=== PATIENT | female | born 1945 | race Caucasian/White ===

== ENCOUNTER → 2016-03-21 | Outpatient (CLI) | payer OTHER, MEDICARE ==
[~2016-03-21] MED LIST: ASPI325T45 PO; ATOR-24 PO; CALC-393 PO; CARV12.52 PO; CHOL1CAP57 PO; FAMO1TAB47 PO; FOLI800T PO; HYDR200T5 PO; IMDSR60 PO; LISI5TAB PO; MAGN1CAP2 PO; METH2.5T PO; NITR0.2D TD; NITR0.4S UT; NRV5 PO; RTXI100 IV
[2016-03-21 12:42] LABS: HEMATOCRIT 34.7 % (37-47); MEAN CELL VOLUME 94.8 fL (80-100); MEAN CORPUSCULAR HEMOGLOBIN 31.4 pg (25-34); MEAN CORPUSCULAR HGB CONC 33.1 g/dl (32-36); MEAN PLATELET VOLUME 11.2 fL (7.4-10.4); PLATELET COUNT 176 K/uL (130-400); RED BLOOD COUNT 3.66 M/uL (4.2-5.4); WHITE BLOOD COUNT 3.77 K/uL (4.8-10.8)
[2016-03-21 13:12] LABS: ALT/SGPT 42 U/L (12-78); BLOOD UREA NITROGEN 25 mg/dl (7-18); BUN/CREATININE RATIO 30.6 (10-20); CALCIUM 9.3 mg/dl (8.5-10.1); CARBON DIOXIDE 27 mmol/L (21-32); CHLORIDE 110 mmol/L (98-107); CHOLESTEROL 137 mg/dl (0-200); GLUCOSE 77 mg/dl (70-99); POTASSIUM 4.1 mmol/L (3.5-5.1); SODIUM 147 mmol/L (136-145); TRIGLYCERIDES 49 mg/dl (0-150); VERY LOW DENSITY LIPOPROT CALC 10 mg/dl
[2016-03-21 13:15] LABS: ALB/GLOB RATIO 1.2 (0.9-2); ALKALINE PHOSPHATASE 105 U/L (45-117); AST/SGOT 44 U/L (15-37); CHOLESTEROL/HDL RATIO 2.4; HDL CHOLESTEROL 56 mg/dl; LDL CHOLESTEROL CALCULATED 71 mg/dl
== END | disposition home or self-care (01) ==
LOC: C.LABPVFM 09:05
PROVIDERS: ATTEND Internal Medicine Cardiovascular Disease
DX: I25.5 Ischemic cardiomyopathy (principal); E78.5 Hyperlipidemia, unspecified; I10 Essential (primary) hypertension; I25.118 Atherosclerotic heart disease of native coronary artery with other forms of angina pectoris

== ENCOUNTER → 2016-04-05 | Outpatient (CLI) | payer OTHER, MEDICARE ==
[2016-04-05 17:29] LABS: BLOOD UREA NITROGEN 19 mg/dl (7-18); BUN/CREATININE RATIO 20.1 (10-20); CARBON DIOXIDE 29 mmol/L (21-32); CHLORIDE 110 mmol/L (98-107); CREATININE 0.92 mg/dl (0.60-1.20); GLUCOSE 62 mg/dl (70-99); POTASSIUM 4.1 mmol/L (3.5-5.1); SODIUM 145 mmol/L (136-145)
== END | disposition home or self-care (01) ==
LOC: C.LABPVFM 10:46
PROVIDERS: ATTEND Internal Medicine Cardiovascular Disease
DX: I25.5 Ischemic cardiomyopathy (principal); E78.5 Hyperlipidemia, unspecified; I10 Essential (primary) hypertension; I25.118 Atherosclerotic heart disease of native coronary artery with other forms of angina pectoris

== ENCOUNTER → 2016-07-19 | Outpatient (CLI) | payer OTHER, MEDICARE ==
--- NOTE | 2016-07-26 16:38 | MAMMOGRAPHY REPORT ---
BILATERAL DIGITAL SCREENING MAMMOGRAM WITH CAD: 07/19/2016 CLINICAL HISTORY: Routine screening. Patient has no complaints. TECHNIQUE: Bilateral CC and MLO views were obtained. Current study was also evaluated with a Comput er Aided Detection (CAD) system. COMPARISON: Comparison is made to exams dated: 10/13/2009 mammogram, 11/02/2010 mammogram, and 08/24/19 14 mammogram - [facility]. BREAST COMPOSITION: The tissue of both breasts is heterogeneously dense, which may obscure small ma sses. FINDINGS: There has been no significant interval change compared to the prior outside mammograms. No new suspicious mass, architectural distortion or cluster of microcalcifications is seen. IMPRESSION: ACR BI-RADS CATEGORY 1: NEGATIVE There is no mammographic evidence of malignancy. A 1 year screening mammogram is recommended. The p atient will receive written notification of the results. Approximately 10% of breast cancers are not detected with mammography. A negative mammographic repor t should not delay biopsy if a clinically suggestive mass is present. Megha Kasper M.D. ay/:07/26/2016 15:46:40 [employer] Operator: Heavenly CHAMPAGNE(R)(M), [facility] letter sent: Normal 1/2 BI-RADS Code: ACR BI-RADS Category 1: Negative
== END | disposition home or self-care (01) ==
LOC: C.MAMM 12:44
PROVIDERS: ATTEND Family Medicine
DX: Z12.31 Encounter for screening mammogram for malignant neoplasm of breast (principal)

== ENCOUNTER → 2016-08-10 | Outpatient (CLI) | payer OTHER, MEDICARE ==
[2016-08-10 17:39] LABS: HEMATOCRIT 35.5 % (37-47); MEAN CELL VOLUME 95.7 fL (80-100); MEAN CORPUSCULAR HEMOGLOBIN 31.3 pg (25-34); MEAN CORPUSCULAR HGB CONC 32.7 g/dl (32-36); MEAN PLATELET VOLUME 10.4 fL (7.4-10.4); PLATELET COUNT 138 K/uL (130-400); RED BLOOD COUNT 3.71 M/uL (4.2-5.4); WHITE BLOOD COUNT 3.99 K/uL (4.8-10.8)
[2016-08-10 19:01] LABS: ALT/SGPT 48 U/L (12-78); AST/SGOT 42 U/L (15-37); BLOOD UREA NITROGEN 18 mg/dl (7-18); BUN/CREATININE RATIO 21.3 (10-20); CALCIUM 9.1 mg/dl (8.5-10.1); CARBON DIOXIDE 25 mmol/L (21-32); CHLORIDE 110 mmol/L (98-107); CREATININE 0.86 mg/dl (0.60-1.20); GLUCOSE 81 mg/dl (70-99); SODIUM 145 mmol/L (136-145)
== END | disposition home or self-care (01) ==
LOC: C.LABPVFM 11:54
PROVIDERS: ATTEND Internal Medicine Cardiovascular Disease
DX: I25.10 Atherosclerotic heart disease of native coronary artery without angina pectoris (principal); E78.5 Hyperlipidemia, unspecified; I10 Essential (primary) hypertension; I25.5 Ischemic cardiomyopathy

== ENCOUNTER → 2016-11-02 | Outpatient (CLI) | payer OTHER, MEDICARE ==
[2016-11-02 18:04] LABS: ALT/SGPT 83 U/L (12-78); AST/SGOT 65 U/L (15-37); BLOOD UREA NITROGEN 18 mg/dl (7-18); BUN/CREATININE RATIO 21.5 (10-20); CALCIUM 9.1 mg/dl (8.5-10.1); CARBON DIOXIDE 30 mmol/L (21-32); CHLORIDE 108 mmol/L (98-107); CREATININE 0.84 mg/dl (0.60-1.20); GLUCOSE 98 mg/dl (70-99); POTASSIUM 3.8 mmol/L (3.5-5.1); SODIUM 141 mmol/L (136-145)
[2016-11-02 18:06] LABS: ALB/GLOB RATIO 0.9 (0.9-2); ALKALINE PHOSPHATASE 120 U/L (45-117)
[2016-11-02 18:12] LABS: BASO % 0.2 %; BASO ABS # 0.01 K/uL (0-0.2); COMPLETE YES; EOS % 8.6 %; HEMATOCRIT 33.2 % (37-47); IG% 0.2 %; LYMPH % 9.2 %; LYMPH ABS # 0.42 K/uL (1.2-3.4); MEAN CELL VOLUME 96.5 fL (80-100); MEAN CORPUSCULAR HEMOGLOBIN 31.7 pg (25-34); MEAN CORPUSCULAR HGB CONC 32.8 g/dl (32-36); MEAN PLATELET VOLUME 11.1 fL (7.4-10.4); MONO % 9.2 %; NEUT % 72.6 %; PLATELET COUNT 146 K/uL (130-400); RED BLOOD COUNT 3.44 M/uL (4.2-5.4); WHITE BLOOD COUNT 4.56 K/uL (4.8-10.8)
== END | disposition home or self-care (01) ==
LOC: C.LABPVFM 11:53
PROVIDERS: ATTEND Internal Medicine
DX: M06.09 Rheumatoid arthritis without rheumatoid factor, multiple sites (principal)

== ENCOUNTER → 2017-04-18 | Outpatient (CLI) | payer OTHER, MEDICARE ==
[2017-04-18 12:36] LABS: HEMATOCRIT 34.2 % (37-47); HEMOGLOBIN 11.4 g/dL (12.0-16.0); MEAN CELL VOLUME 95.8 fL (80-100); MEAN CORPUSCULAR HEMOGLOBIN 31.9 pg (25-34); MEAN CORPUSCULAR HGB CONC 33.3 g/dl (32-36); MEAN PLATELET VOLUME 11.3 fL (7.4-10.4); PLATELET COUNT 122 K/uL (130-400); RED CELL DISTRIBUTION WIDTH CV 16.5 % (11.5-14.5); RED CELL DISTRIBUTION WIDTH SD 57.4 fL (36.4-46.3); WHITE BLOOD COUNT 6.01 K/uL (4.8-10.8)
[2017-04-18 14:23] LABS: ALT/SGPT 63 U/L (12-78); AST/SGOT 53 U/L (15-37); BLOOD UREA NITROGEN 16 mg/dl (7-18); CALCIUM 9.1 mg/dl (8.5-10.1); CARBON DIOXIDE 29 mmol/L (21-32); CHOLESTEROL 129 mg/dl (0-200); CREATININE 0.79 mg/dl (0.60-1.20); GLUCOSE 79 mg/dl (70-99); POTASSIUM 3.8 mmol/L (3.5-5.1); SODIUM 140 mmol/L (136-145)
[2017-04-18 14:27] LABS: LDL CHOLESTEROL CALCULATED 64 mg/dl
== END | disposition home or self-care (01) ==
LOC: C.LABPVFM 08:08
PROVIDERS: ATTEND Internal Medicine Cardiovascular Disease
DX: R10.9 Unspecified abdominal pain (principal); I25.118 Atherosclerotic heart disease of native coronary artery with other forms of angina pectoris; I25.5 Ischemic cardiomyopathy; E78.5 Hyperlipidemia, unspecified; I10 Essential (primary) hypertension

== ENCOUNTER → 2017-05-08 | Outpatient (CLI) | payer OTHER, MEDICARE ==
[~2017-05-08] MED LIST changes: +AMLO-110 PO; +ASPCH81X PO; -ASPI325T45 PO; +CHOL100010 PO; -CHOL1CAP57 PO; +CLOP1TAB15 PO; -FAMO1TAB47 PO; +FOLI1TAB8 PO; -FOLI800T PO; -HYDR200T5 PO; -IMDSR60 PO; +LISI-461 PO; -LISI5TAB PO; -MAGN1CAP2 PO; +MAGN400T6 PO; +METH1TAB81 PO; -NITR0.2D TD; +NITR0.2D7 EXT; -NITR0.4S UT; -NRV5 PO; +NTRGSL/4 UT
[2017-05-08 12:12] LABS: EOS % 0.2 %; EOS ABS # 0.02 K/uL (0-0.5); HEMOGLOBIN 12.6 g/dL (12.0-16.0); IG# 0.02 K/uL (0.00-0.02); LYMPH % 5.5 %; MEAN CELL VOLUME 96.4 fL (80-100); MEAN CORPUSCULAR HGB CONC 33.2 g/dl (32-36); MEAN PLATELET VOLUME 11.9 fL (7.4-10.4); MONO % 7.6 %; MONO ABS # 0.69 K/uL (0.11-0.59); NEUT % 86.5 %; NEUT ABS # 7.88 K/uL (1.4-6.5); PLATELET COUNT 140 K/uL (130-400); RED CELL DISTRIBUTION WIDTH CV 16.7 % (11.5-14.5); RED CELL DISTRIBUTION WIDTH SD 58.7 fL (36.4-46.3); WHITE BLOOD COUNT 9.11 K/uL (4.8-10.8)
[2017-05-08 12:54] LABS: ALBUMIN 3.3 gm/dl (3.4-5.0); ALT/SGPT 79 U/L (12-78); BLOOD UREA NITROGEN 31 mg/dl (7-18); CALCIUM 9.2 mg/dl (8.5-10.1); CARBON DIOXIDE 31 mmol/L (21-32); CREATININE 0.79 mg/dl (0.60-1.20); GLUCOSE 81 mg/dl (70-99); POTASSIUM 3.9 mmol/L (3.5-5.1); SODIUM 142 mmol/L (136-145)
[2017-05-08 12:57] LABS: ALKALINE PHOSPHATASE 117 U/L (45-117); AST/SGOT 45 U/L (15-37); TOTAL PROTEIN 6.1 gm/dl (6.4-8.2)
== END | disposition home or self-care (01) ==
LOC: C.LABPVFM 10:00
PROVIDERS: ATTEND Internal Medicine
DX: M06.09 Rheumatoid arthritis without rheumatoid factor, multiple sites (principal)

== ENCOUNTER → 2017-05-10 | Day surgery (SDC) | payer OTHER, MEDICARE ==
[2017-04-25 10:07] VITALS: BMI 19.0
[~2017-05-10] VITALS: Ht 160 cm; Wt 50.9 kg
[~2017-05-10] MED LIST changes: +EpHEDrine SULFATE 50MG/5ML SYR ONE; +LIDOCAINE HCL 2% 2 ML VIAL (20MG/ML) ONE; +PROPOFOL IV EMULSION 10 MG/ML 20 ML VIAL IV ONE; +SODIUM CHLORIDE 0.9% 500ML 500 ML IV ONE
[2017-05-10 08:04] VITALS: Ht 160 cm; Wt 50.9 kg
[2017-05-10 08:09] VITALS: TEMP 36.3
--- NOTE | 2017-05-10 08:36 | Endo History and Physical ---
History & Physical Date of Service: May 10, 2017. Chief Complaint: SCREENING 10 YEAR FOLLOW UP Referring Physician: DR MONROE History of Present Illness 71 yo CF who presents for screening colonoscopy. Past Medical History Angioplasty/Stent, Arthritis, High Cholesterol, CABG, Hypertension, SD Past Surgical History Hx Cardiac Surgery: Yes (CARDIAC CATH-1 STENT, CABG 4 VESSELS) Hx Internal Defibrillator: No Hx Pacemaker: No Hx Abdominal Surgery: No Hx of Implantable Prosthesis: No Hx Post-Op Nausea and Vomiting: No Hx Cancer Surgery: No Hx Thoracic Surgery: No Hx Orthopedic: No Hx Urinary Tract Surgery: No Family History Colon CA Social History Smoking Status: Former Smoker Hx Substance Use: No Hx Alcohol Use: Yes (1 DRINK PER WEEK) Allergies Coded Allergies: No Known Allergies (Unverified , 05/10/17) Current Medications Reported Home Medications Medications Dose Route/Sig Max Daily Dose Days Date Category Dose Instructions Aspirin Chewable (Aspirin) 81 Mg Chew 81 Mg PO QAM 04/25/17 Reported Lipitor (Atorvastatin Calcium) 40 Mg Tab 40 Mg PO HS 04/25/17 Reported Nitrostat (Nitroglycerin) 0.4 Mg Tab 0.4 Mg UT PRN 04/25/17 Reported Nitroglycerin 0.2 Mg/Hr Dis 1 Dose EXT DAILY 04/25/17 Reported WEARS AT NIGHT Rituxan (Rituximab) 10 Mg/Ml Inj 1 Dose IV [id number] 04/25/17 Reported Methotrexate 2.5 Mg Tab 4 Tab PO WK 04/25/17 Reported Mag-Ox (Magnesium Oxide) 400 Mg Tab 400 Mg PO DAILY 04/25/17 Reported Zestril (Lisinopril) 10 Mg Tab 10 Mg PO QAM 04/25/17 Reported Folvite (Folic Acid) 1 Mg Tab 1 Mg PO QAM 04/25/17 Reported Plavix (Clopidogrel Bisulfate) 75 Mg Tab 75 Mg PO QAM 04/25/17 Reported Vitamin D (Cholecalciferol) 1,000 Unit Tab 1 Tab PO QAM 04/25/17 Reported Calcium (Calcium Carbonate) 600 Mg Tab 1 Tab PO QAM 04/25/17 Reported Coreg (Carvedilol) 12.5 Mg Tab 12.5 Mg PO BID 04/25/17 Reported Norvasc (Amlodipine Besylate) 5 Mg Tab 10 Mg PO QAM 04/25/17 Reported Vital Signs Weight (Kilograms): 50.91 Height (Feet): 5 Height (Inches): 3 Date Time Temp Pulse Resp B/P (MAP) Pulse Ox O2 Delivery O2 Flow Rate FiO2 05/10/17 08:09 36.3 50 18 125/61 (82) 99 Room Air Physical Exam General Appearance: WD/WN, no apparent distress Respiratory/Chest: Auscultation: breath sounds normal Cardiovascular: Heart Auscultation: RRR Abdomen: Bowel Sounds: normal Inspection & Palpation: soft, non-distended, no tenderness, guarding & rebound Assessment and Plan Assessment: 71 yo CF who presents for screening colonoscopy. Plan: Proceed with colonoscopy.
--- NOTE | 2017-05-10 09:10 | Discharge Instructions ---
Endoscopy Patient Instructions Date / Procedure(s) Performed May 10, 2017. Colonoscopy Allergy Information Coded Allergies: No Known Allergies (Unverified , 05/10/17) Discharge Date / Findings May 10, 2017. Colon polyp Diverticulosis Internal hemorrhoids Medication Instructions Stopped Medication(s): ASA and PLAVIX OK to resume all medications today as prescribed Reported Home Medications Medications Dose Route/Sig Max Daily Dose Days Date Category Dose Instructions Aspirin Chewable (Aspirin) 81 Mg Chew 81 Mg PO QAM 04/25/17 Reported Lipitor (Atorvastatin Calcium) 40 Mg Tab 40 Mg PO HS 04/25/17 Reported Nitrostat (Nitroglycerin) 0.4 Mg Tab 0.4 Mg UT PRN 04/25/17 Reported Nitroglycerin 0.2 Mg/Hr Dis 1 Dose EXT DAILY 04/25/17 Reported WEARS AT NIGHT Rituxan (Rituximab) 10 Mg/Ml Inj 1 Dose IV [id number] 04/25/17 Reported Methotrexate 2.5 Mg Tab 4 Tab PO WK 04/25/17 Reported Mag-Ox (Magnesium Oxide) 400 Mg Tab 400 Mg PO DAILY 04/25/17 Reported Zestril (Lisinopril) 10 Mg Tab 10 Mg PO QAM 04/25/17 Reported Folvite (Folic Acid) 1 Mg Tab 1 Mg PO QAM 04/25/17 Reported Plavix (Clopidogrel Bisulfate) 75 Mg Tab 75 Mg PO QAM 04/25/17 Reported Vitamin D (Cholecalciferol) 1,000 Unit Tab 1 Tab PO QAM 04/25/17 Reported Calcium (Calcium Carbonate) 600 Mg Tab 1 Tab PO QAM 04/25/17 Reported Coreg (Carvedilol) 12.5 Mg Tab 12.5 Mg PO BID 04/25/17 Reported Norvasc (Amlodipine Besylate) 5 Mg Tab 10 Mg PO QAM 04/25/17 Reported Provider Instructions Activity Restrictions - No exercising or heavy lifting for 24 hours. - Do not drink alcohol the day of the procedure. - Do not drive a car or operate machinery until the day after the procedure. - Do not make any important decisions or sign important papers in 24 hours after the procedure. Following Day: - Return to full activity which may include returning to work/school. Diet Start your diet with liquids and light foods (jello, soup, juice, toast). Then eat your usual diet if not nauseated. Treatment For Common After Affects For mild abdominal pain, bloating, or excessive gas: - Rest - Eat lightly - Lie on right side Follow-Up Information Follow-up with DR MONROE as scheduled Anesthesia Information What You Should Know You have had a procedure that required some medicine to reduce anxiety and discomfort. This treatment is called moderate sedation. After receiving the treatment, you may be sleepy, but you will be able to breathe on your own. The effects of the treatment may last for several hours. Follow these instructions along with Activity/Diet recommendations noted above: * Do NOT do anything where dizziness or clumsiness would be dangerous. * Rest quietly at home today, then you can be up and about tomorrow. * Have a responsible person stay with you the rest of today. * You may have had an I.V. today. If so, you may take the dressing off later today. Recommendations Call your doctor if: * Trouble breathing * Continuous vomiting for more than 24 hours * Temperature above 101 degrees * Severe abdominal pain or bloating * Pain not relieved by pain medicine ordered * There is increased drainage or redness from any incision * A large amount of rectal bleeding greater than 2-3 tablespoons. (If you had a polyp/s removed or have hemorrhoids, a small amount of blood - from the rectum is to be expected.) * You have any unanswered questions or concerns. IN THE EVENT OF A SERIOUS EMERGENCY, GO TO THE NEAREST EMERGENCY ROOM Your discharge instructions were prepared by provider Jerel Dominguez. Patient Instructions Signature Page Camila Juan Carlos Patient (or Guardian) Signature/Date: I have read and understand the instructions given to me by my caregivers. Caregiver/RN/Doctor Signature/Date: The above-named patient and/or guardian has received patient instructions on this date. + Original Patient Signature Page (only) stays with chart. Please make copy for patient.
--- NOTE | 2017-05-10 09:15 | GI REPORT ---
Procedure Date: 05/10/2017 8:43 AM Procedure: Colonoscopy Indications: Screening for colorectal malignant neoplasm Medicines: Monitored Anesthesia Care Complications: No immediate complications. Estimated Blood Loss: Estimated blood loss: none. Procedure: Pre-Anesthesia Assessment: - Prior to the procedure, a History and Physical was performed, and patient medications and allergies were reviewed. The patient's tolerance of previous anesthesia was also reviewed. The risks and benefits of the procedure and the sedation options and risks were discussed with the patient. All questions were answered, and informed consent was obtained. Prior Anticoagulants: The patient last took aspirin 1 day and Plavix (clopidogrel) 4 days prior to the procedure. ASA Grade Assessment: IV - A patient with severe systemic disease that is a constant threat to life. After reviewing the risks and benefits, the patient was deemed in satisfactory condition to undergo the procedure. After I obtained informed consent, the scope was passed under direct vision. Throughout the procedure, the patient's blood pressure, pulse, and oxygen saturations were monitored continuously. The scope was introduced through the anus and advanced to the cecum, identified by appendiceal orifice and ileocecal valve. The colonoscopy was performed without difficulty. The patient tolerated the procedure well. The quality of the bowel preparation was good. The ileocecal valve, appendiceal orifice, and rectum were photographed. Findings: The perianal and digital rectal examinations were normal. A 5 mm polyp was found in the descending colon. The polyp was sessile. The polyp was removed with a hot snare. Resection and retrieval were complete. Multiple small-mouthed diverticula were found in the sigmoid colon. Non-bleeding internal hemorrhoids were found during retroflexion. The hemorrhoids were small. Impression: - One 5 mm polyp in the descending colon, removed with a hot snare. Resected and retrieved. - Diverticulosis in the sigmoid colon. - Non-bleeding internal hemorrhoids. Recommendation: - Resume previous diet. - Continue present medications. - Repeat colonoscopy for surveillance based on pathology results. - Return to primary care physician as previously scheduled. Jerel Dominguez DO 05/10/2017 9:14:41 AM This report has been signed electronically. Note Initiated On: 05/10/2017 8:43 AM I attest to the content of the Intraoperative Record and orders documented therein, exceptions below
--- NOTE | 2017-05-10 09:44 | Anesthesiology Progress Note ---
Anesthesia Post Op Note Date & Time May 10, 2017 at 09:43 Vital Signs Pain Intensity: 0 Vital Signs Past 12 Hours Date Time Temp Pulse Resp B/P (MAP) Pulse Ox O2 Delivery O2 Flow Rate FiO2 05/10/17 09:32 55 16 108/51 (70) 98 Room Air 05/10/17 09:25 54 16 114/47 (69) 98 Room Air 05/10/17 08:09 36.3 50 18 125/61 (82) 99 Room Air Notes Mental Status: alert / awake / arousable, participated in evaluation Pt Amnestic to Procedure: Yes Nausea / Vomiting: adequately controlled Pain: adequately controlled Airway Patency, RR, SpO2: stable & adequate BP & HR: stable & adequate Hydration State: stable & adequate Anesthetic Complications: no major complications apparent
[2017-05-10 09:50] VITALS: BP 98/48; PULSE 51; O2SAT 98
== END | disposition home or self-care (01) ==
LOC: C.GI 07:30
PROVIDERS: ATTEND Internal Medicine
DX: Z12.11 Encounter for screening for malignant neoplasm of colon (principal); D12.4 Benign neoplasm of descending colon; K57.30 Diverticulosis of large intestine without perforation or abscess without bleeding; K64.8 Other hemorrhoids; M19.90 Unspecified osteoarthritis, unspecified site; E78.00 Pure hypercholesterolemia, unspecified; I10 Essential (primary) hypertension; Z80.0 Family history of malignant neoplasm of digestive organs; I25.2 Old myocardial infarction; Z95.1 Presence of aortocoronary bypass graft; Z95.5 Presence of coronary angioplasty implant and graft; Z79.82 Long term (current) use of aspirin; Z79.899 Other long term (current) drug therapy; Z79.02 Long term (current) use of antithrombotics/antiplatelets

== ENCOUNTER → 2017-09-21 | Outpatient (CLI) | payer OTHER, MEDICARE ==
[~2017-09-21] MED LIST changes: -AMLO-110 PO; +AMLO5TAB3 PO; -EpHEDrine SULFATE 50MG/5ML SYR ONE; -LIDOCAINE HCL 2% 2 ML VIAL (20MG/ML) ONE; -METH1TAB81 PO; -PROPOFOL IV EMULSION 10 MG/ML 20 ML VIAL IV ONE; -SODIUM CHLORIDE 0.9% 500ML 500 ML IV ONE
== END | disposition home or self-care (01) ==
LOC: C.MAMM 08:48
PROVIDERS: ATTEND Family Medicine
DX: Z13.820 Encounter for screening for osteoporosis (principal); M85.89 Other specified disorders of bone density and structure, multiple sites

== ENCOUNTER 2023-10-23 02:13 | Inpatient (IN) ==
[2023-10-23 03:03] LABS: Basophils # (auto) 0.03 K/uL (0.00-0.20); Basophils % (auto) 0.5 %; Eosinophils # (auto) 0.24 K/uL (0.00-0.50); Eosinophils % (auto) 3.9 %; Hematocrit (blood only) 33.7 % (37.0-47.0); Hemoglobin 11.1 g/dl (12.0-16.0); Immature Granulocytes # (auto) 0.02 K/uL (0.01-0.20); Immature Granulocytes % (auto) 0.3 %; Lymphocytes # (auto) 1.09 K/uL (1.20-3.40); Lymphocytes % (auto) 17.8 %; Mean Corpuscular Hemoglobin 29.4 pg (25.0-34.0); Mean Corpuscular Hgb Conc 32.9 g/dL (32.0-36.0); Mean Corpuscular Volume 89.2 fL (80.0-100.0); Mean Platelet Volume 10.7 fL (9.4-12.4); Monocytes # (auto) 0.48 K/uL (0.11-0.59); Monocytes % (auto) 7.8 %; Neutrophils # (auto) 4.27 K/uL (1.40-6.50); Neutrophils % (auto) 69.7 %; Platelet Count 134 K/uL (130-400); RDW Coefficient of Variation 15.6 % (11.5-14.5); RDW Standard Deviation 51.3 fL (36.4-46.3); Red Blood Count 3.78 M/uL (4.20-5.40); White Blood Count 6.13 K/ul (4.8-10.8)
[2023-10-23 03:08] LABS: Albumin Level 3.9 gm/dl (3.4-5.0); Bilirubin,Total 0.4 mg/dl (0.2-1.0); Calcium 9.7 mg/dl (8.6-10.3); Magnesium 2.2 mg/dl (1.7-2.4); Potassium 4.3 mmol/L (3.5-5.1)
[2023-10-23 03:13] LABS: INR 0.9 (0.9-1.1); Prothrombin Time 10.3 Seconds (9.0-12.0)
[2023-10-23 03:14] LABS: Albumin Globulin Ratio 1.7 (0.9-2); Creatinine Clr Calc Pharmacy 36.2 ml/min; Est GFR (African American) 60.7 ml/min; Est GFR (Non-African American) 52.4 ml/min; Globulin 2.3 gm/dl (2.5-4.0); Total Protein 6.2 gm/dl (6.0-8.3)
[2023-10-23 03:26] LABS: Thyroid Stimulating Hormone 2.849 uIu/ml (0.300-4.500)
--- NOTE | 2023-10-23 03:35 | Emergency Department Note ---
Impression & Plan Chest pain, Elevated troponin ED Provider Note ED Provider Note NAME: NASREEN PINEDO AGE:78 SEX: Female : 1945 ARRIVES VIA: EMS INFORMANT: Patient ED PROVIDER(s): Mita Montano DO CHIEF COMPLAINT: Chest pain HPI: This is a 78-year-old female who presents to the Emergency Department via EMS due to concern for chest pain. Patient states she was asleep when she woke up with a central chest heaviness. Pain was otherwise nonradiating. Patient states she has had prior similar episodes and so she took a nitro that she has at home. Patient states pain went away and she was able to fall back asleep for about an hour. She woke again at 12:30 AM with similar pain and took a second nitro. She states she has had several episodes in the past like this however they typically resolve with 1 nitro, she has not had episodes where she is needed to take a second. This was concerning to her and so she woke family and called 911. Patient denies any recent increased GERD/reflux symptoms. She states she has not noted any pain or pressure during the day or with exertion. She denies any coming shortness of breath, dizziness, nausea or vomiting. No recent fevers, chills, or URI symptoms. No recent leg swelling. Patient does follow with cardiology as she has had prior CABG x 4. Patient given aspirin en route by EMS. Patient denies any current pain/pressure. PAST MEDICAL HISTORY:See Below PAST SURGICAL HISTORY:See Below FAMILY HISTORY:See Below SOCIAL HISTORY:See Below HOME MEDICATIONS:See Below ALLERGIES:See Below VITALS:See Below PHYSICAL EXAMINATION: GENERAL: alert, well appearing, well nourished, no distress, non-toxic EYE EXAM: normal conjunctiva, PERRL and EOM's grossly intact OROPHARYNX: no exudate, no erythema, lips, buccal mucosa, and tongue normal and mucous membranes are moist NECK: supple, no nuchal rigidity, no adenopathy, non-tender LUNGS: Clear to auscultation. Normal chest wall mechanics, no w/r/r HEART: no murmurs, S1 normal and S2 normal, no reproducible pain with palpation ABDOMEN: abdomen soft, non-tender, normo-active bowel sounds, no masses, no rebound or guarding. BACK: Back is symmetrical on inspection and there is no deformity, no midline tenderness, no CVA tenderness. SKIN: no rashes, petechiae, orbruising UPPER EXTREMITIES: upper extremities are grossly normal. FROM, nml pulses b/l. LOWER EXTREMITIES: No pitting edema. FROM, nml pulses b/l. NEURO EXAM: Normal sensorium, cranial nerves II-XII grossly intact, normal speech, no facial droop,nogross weakness of arms, no gross weakness of legs. Gross sensation intact. No ataxia. Vital Signs: reviewed and remarkable Differential Diagnosis: acute coronary syndrome, pericarditis, pulmonary embolus, aortic dissection, pneumonia, pneumothorax, musculoskeletal pain, shingles, GERD, GI bleed, as well as others were considered MEDICAL DECISION MAKING: This is a 78-year-old female who presents emergency department due to concern for chest pain. She had no chest pain on arrival, she did take 2 nitro at home and was given aspirin by EMS prior to arrival. Labs drawn and sent, IV established, EKG and chest x-ray performed at bedside interpreted by me and patient monitored on telemetry. Patient had no recurrent pain while monitored in the emergency department. Patient's initial troponin borderline elevated, although no acute EKG changes seen. Patient was monitored here, no ectopy or dysrhythmia noted on telemetry, and repeat troponin sent. Repeat troponin uptrending. Due to concern for patient's known history of CAD status post CABG, recurrent episodes of chest pain tonight which is unusual for her, and uptrending troponin, case discussed with the hospitalist team for additional evaluation and management. She denied any recurrent pain while monitored in the emergency department. No other symptoms to suggest infectious etiology. I have low suspicion for acute vascular emergency or occult PE. Consultation(s): 0545: Discussed with Dr. Romero, not any hospitalist team, for additional evaluation and management. ER Treatment Provided: See below Diagnostics Interpreted By Me: -ECG: Sinus bradycardia 59 with first-degree AV block, normal axis, normal intervals, inverted T wave noted in lead III and flattened in aVF, no other acute ischemic changes. EKG unchanged from 2021 -Cardiac Monitoring: An order was placed for continuous cardiac monitoring. The monitor shows a rate of 55 with sinus bradycardia rhythm. -Laboratory studies: As stated above and show below. -Imaging studies: X-ray Chest: A single view study of the chest was reviewed and was negative for cardiomegaly, focal infiltrate, effusion, pulmonary edema, or wide mediastinum. Triage Nursing Note Reviewed Prior/Outside Records Reviewed -cardiology office visit from 07/18/2023 reviewed Past Med/Surg History Problem List (Updated 10/23/23 @ 07:38 by Mita Montano DO) Elevated troponin (Acute) Acute coronary syndrome with high troponin Chest pain (Acute) History of colon polyps Angina pectoris Atherosclerosis Bochdalek hernia Multiple pulmonary nodules Arm bruise Lymphadenopathy of right cervical region Fall Traumatic injury of rib Otalgia, right ear Neck pain Right-sided tinnitus Mixed conductive and sensorineural hearing loss of right ear with restricted hearing of left ear Chronic rhinitis Maxillary sinusitis Impacted cerumen, right ear Seborrheic keratoses, inflamed Diarrhea S/P right coronary artery (RCA) stent placement Sensation of chest tightness Mild carotid artery disease Hx of CABG 4 VESSELS 2013 WHILE LIVING IN [facility] Mitral regurgitation COPD with emphysema Lung nodules BEING MONITORED Vitamin D deficiency Former smoker quit in 2003. 40 pack year Hx. Ischemic cardiomyopathy Rheumatoid arthritis Hypertension Hyperlipidemia CAD (coronary artery disease) (Chronic) Medical History Avulsion of nail of left index finger Carotid bruit Ridged nails UTI (urinary tract infection) Emphysema of lung Myocardial Infarction 2013 History of COVID-19 11/2021>RESOLVED COVID-19 Surgical History History of colonoscopy History of tooth extraction History of tonsillectomy History of heart artery stent X 2>2013 WHILE IN [facility] History of femoral hernia repair Family History Mother Breast cancer Father Coronary heart disease Myocardial infarction Heart disease Sister Rheumatoid arthritis Other No family history of adverse response to anesthesia No family history of bleeding disorder Denies family history of Ovarian cancer Prostate cancer Colorectal cancer Social History Smoking Status: Former smoker Age Started Using Tobacco: 18; Age Quit Using Tobacco: 57; packs per day: 1; Cigarettes Per Day: 20; Second Hand Exposure: No; Do You Dip or Chew Tobacco: No; Hx Alcohol Use: Yes Alcohol type: hard liquor Alcohol Intake Frequency: Monthly or Less Hx Substance Use: No Preferred Language: Occitan Communication Ability: Effective Visual Impairment: No Limitations Hearing Ability: Hard of Hearing Inspector Screen Printing Required: No Beliefs That Will Affect Care: None marital status: Current Living Situation: Spouse current occupational status: retired How many Children do You have: 1 How many Children do You have Comment: son Feels Safe at Home: Yes Childhood Exposure to Second-Hand Smoke: No Diet: low salt and regular caffeine: Yes during the past year weight has: remained stable Dental Care, Regularly: Yes Physical Activity Frequency: Daily Physical Activity Frequency Comment: walking, gardening Seatbelt Use: always Sunscreen Use: No Do you think of yourself as: straight/heterosexual Gender Identity: Female Assistive Devices: Denture - Upper and Glasses Allergies Allergies Allergy/AdvReac Type Severity Reaction Status Date / Time No Known Drug Allergies Allergy Unknown Verified 10/23/23 02:52 Home Meds Home Medications Medication Instructions Recorded Confirmed aspirin 81 mg tablet,delayed 81 mg PO QAM 12/07/18 10/23/23 release magnesium oxide 400 mg PO QAM 12/07/18 10/23/23 cholecalciferol (vitamin D3) 25 1,000 units PO HS 06/24/22 10/23/23 mcg (1,000 unit) tablet umeclidinium 62.5 mcg/actuation 1 inh inhalation Q OTHER DAY 10/23/23 10/23/23 blister powder for inhalation (Incruse Ellipta) Previous Rx's Medication Instructions Recorded calcium carbonate (Calcium 600) 600 mg PO BID #60 tabs 07/31/18 folic acid 800 mcg tablet See Rx Instructions PO DAILY #30 07/31/18 tabs nitroglycerin 0.4 mg sublingual 0.4 mg sublingual Q5M PRN chest 04/26/22 tablet pain #25 tabs lisinopril 30 mg tablet 15 mg (1/2 x 30 mg) PO QAM #45 tabs 01/27/23 isosorbide mononitrate 30 mg 30 mg PO DAILY #90 tabs 07/18/23 tablet,extended release 24 hr atorvastatin 80 mg tablet 80 mg PO QPM #90 tabs 07/21/23 carvedilol 12.5 mg tablet 12.5 mg PO BID #180 tabs 07/21/23 Results & Data (ED) Vital Signs Vital Signs - 24 hr 10/23/23 02:19 10/23/23 02:19 10/23/23 03:00 Temperature 36.6 C Temperature Source Oral Pulse Rate 64 49 L 51 L Respiratory Rate 16 12 Blood Pressure 167/76 H 148/73 H Blood Pressure Mean 106 98 Pulse Oximetry 96 95 Oxygen Delivery Method Room Air Sepsis Recent Fever Within 48 Hours No Sepsis New/Unexplained Change in Mental Status No Sepsis Action Taken by Nursing No Action Required 10/23/23 03:30 10/23/23 04:30 10/23/23 05:00 Temperature Temperature Source Pulse Rate 50 L 51 L 50 L Respiratory Rate 22 18 16 Blood Pressure 140/63 140/68 139/66 Blood Pressure Mean 88 92 107 Pulse Oximetry 95 94 94 Oxygen Delivery Method Room Air Sepsis Recent Fever Within 48 Hours Sepsis New/Unexplained Change in Mental Status Sepsis Action Taken by Nursing 10/23/23 05:30 10/23/23 06:11 Temperature Temperature Source Pulse Rate 50 L 57 L Respiratory Rate 16 Blood Pressure 160/69 H Blood Pressure Mean 105 Pulse Oximetry 94 Oxygen Delivery Method Sepsis Recent Fever Within 48 Hours Sepsis New/Unexplained Change in Mental Status Sepsis Action Taken by Nursing Laboratory Data 10/23/23 02:16 10/23/23 02:16 Lab Results 10/23/23 10/23/23 Range/Units 02:16 04:50 WBC 6.13 (4.8-10.8) K/ul RBC 3.78 L (4.20-5.40) M/uL Hgb 11.1 L (12.0-16.0) g/dl Hct 33.7 L (37.0-47.0) % MCV 89.2 (80.0-100.0) fL MCH 29.4 (25.0-34.0) pg MCHC 32.9 (32.0-36.0) g/dL RDW Std Deviation 51.3 H (36.4-46.3) fL RDW Coeff of Jimena 15.6 H (11.5-14.5) % Plt Count 134 (130-400) K/uL MPV 10.7 (9.4-12.4) fL Immature Gran % (Auto) 0.3 % Neut % (Auto) 69.7 % Lymph % (Auto) 17.8 % [place] % (Auto) 7.8 % Eos % (Auto) 3.9 % Baso % (Auto) 0.5 % Neut # (Auto) 4.27 (1.40-6.50) K/uL Lymph # (Auto) 1.09 L (1.20-3.40) K/uL [place] # (Auto) 0.48 (0.11-0.59) K/uL Eos # (Auto) 0.24 (0.00-0.50) K/uL Baso # (Auto) 0.03 (0.00-0.20) K/uL Immature Gran # (Auto) 0.02 (0.01-0.20) K/uL PT 10.3 (9.0-12.0) Seconds INR 0.9 (0.9-1.1) APTT 27 (21-31) Seconds PTT Ratio 1.0 Sodium 141 (136-145) mmol/L Potassium 4.3 (3.5-5.1) mmol/L Chloride 108 H (98-107) mmol/L Carbon Dioxide 27 (21-32) mmol/L Anion Gap 6 (3-11) BUN 33 H (6-23) mg/dl Creatinine 1.03 (0.6-1.2) mg/dl Est Cr Clr Drug Dosing 36.2 ml/min Est GFR ( Amer) 60.7 ml/min Est GFR (Non-Af Amer) 52.4 ml/min BUN/Creatinine Ratio 32.0 H (10-20) Glucose 98 (70-99(Fasting)) mg/dl Estimat Average Glucose 120 mg/dl Hemoglobin A1c 5.8 H (4.5-5.6) % Calcium 9.7 (8.6-10.3) mg/dl Magnesium 2.2 (1.7-2.4) mg/dl Total Bilirubin 0.4 (0.2-1.0) mg/dl AST 22 (13-39) U/L ALT 15 (7-52) U/L Alkaline Phosphatase 68 (34-104) U/L Troponin I High Sens 17.4 H 22.2 H (0-14) pg/ml Total Protein 6.2 (6.0-8.3) gm/dl Albumin 3.9 (3.4-5.0) gm/dl Globulin 2.3 L (2.5-4.0) gm/dl Albumin/Globulin Ratio 1.7 (0.9-2) Triglycerides 59 (0-150) mg/dl Cholesterol 113 (0-200) mg/dl LDL Cholesterol, Calc 55 mg/dl VLDL Cholesterol, Calc 12 (0-30) mg/dl HDL Cholesterol 46 mg/dl Cholesterol/HDL Ratio 2.5 (0-5) Lipase 35 (11-82) U/L TSH 2.849 (0.300-4.500) uIu/ml Administered Medications Heparin Sodium/Dextrose (Heparin Sodium/Dextrose) 25,000 units in 500 mls @ 19 mls/hr IV .Q24H [facility]; Protocol Stop: 11/22/23 06:29 Last Admin: 10/23/23 06:30 Dose: 950 units/hr, 19 mls/hr Documented By: MARCUS Co-signed By: GEORGE Sodium Chloride (Nss) 1,000 mls @ 80 mls/hr IV .[id number] STA Stop: 10/23/23 18:50 Last Admin: 10/23/23 06:36 Dose: 80 mls/hr Documented By: MARCUS Discontinued Medications Aspirin (Aspirin Chew 324 Mg) Confirm Administered Dose 324 mg .ROUTE .STK-MED ONE Stop: 10/23/23 06:05 Last Admin: 10/23/23 06:12 Dose: Not Given Documented By: MARCUS Heparin Sodium (Porcine) (Heparin Sod (Porcine) 1000 Unit/Ml) 4,000 units IV NOW ONE Stop: 10/23/23 06:29 Last Admin: 10/23/23 06:29 Dose: 3,000 units Documented By: MARCUS Co-signed By: GEORGE Heparin Sodium/Dextrose (Heparin Iv Adult Wt-Based Standard W/ Initial Bolus Protocol) 1 each IV NOW STA; Protocol Stop: 10/23/23 06:13 Last Admin: 10/23/23 06:31 Dose: Not Given Documented By: MARCUS Nitroglycerin (Nitroglycerin 2% Ointment 30gm Tube) 1 inch EXT ONE STA Stop: 10/23/23 06:16 Last Admin: 10/23/23 06:43 Dose: 1 inch Documented By: MARCUS Discharge Plan Visit Data Chief Complaint: Chest Pain Stated Complaint: Chest Pain ED Provider: Mita Montano Discharge Problem: Chest pain, Elevated troponin Patient Disposition: Admitted As Inpatient Discharge Instructions Interventions: ED Discharge Assessment Last Done: 10/23/23 07:34
[2023-10-23 04:36] LABS: Troponin I High Sensitivity 17.4 pg/ml (0-14)
[2023-10-23] MEDS: ASPIRIN CHEW 324 MG ONE (06:12)
--- NOTE | 2023-10-23 06:21 | History & Physical Report ---
Date of Service October 23, 2023 Assessment & Plan (1) Acute coronary syndrome with high troponin: (2) S/P right coronary artery (RCA) stent placement: (3) Hx of CABG: (4) Ischemic cardiomyopathy: (5) Rheumatoid arthritis: (6) Hypertension: (7) Hyperlipidemia: (8) COPD with emphysema: Plan Acute coronary syndrome with elevated troponin/CAD/hypertension/history of RCA stent/ischemic cardiomyopathy/history of CABG- The patient will be admitted to telemetry for serial cardiac enzymes, serial EKG's, cardiac rhythm monitoring and a 2-D echocardiogram with Dopplers. Initial troponin 17.4, with follow-up 22.2 EKG with sinus bradycardia and repolarization changes anterior chest leads Patient did receive 324 mg aspirin en route by EMS Started on Nitropaste 1 inch to anterior chest wall every 6 hours Start heparin drip with bolus per protocol Aspirin 81 mg daily carvedilol 12.5 mg p.o. twice daily, isosorbide mononitrate extended release 30 mg daily, mag oxide 40 mg every morning and lisinopril 15 mg daily Continue nitroglycerin sublingual every 5 minutes as needed NSS at 80 mL/h x 1 L Consult cardiology Hyperlipidemia- Continue atorvastatin 80 mg daily Check a fasting lipid panel and hemoglobin A1c COPD with emphysema- Continue Incruse Ellipta History of Present Illness Chief Complaint: The patient reports that she went to bed about 930 last evening, and was woken up at 11:30 in the evening by substernal chest pain, that was relieved by sublingual nitroglycerin x 1. She then went back to sleep, was woken up by second episode of chest pain at 1230, which was relieved by sublingual nitroglycerin, this time she stayed awake for the rest of the evening. She became more concerned as the evening went on, 911 was called, she was given 4 baby aspirin by EMS, and brought to the ED for assessment. Patient has had episodes of chest pain at nighttime in the past, but never has had an episode where she had type II [id number] like this evening. She describes a usual busy day yesterday, not uncommon for her during the summertime. She did take all her medications as directed yesterday as well, including her aspirin yesterday morning. 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 She presents to the emergency department with escalating symptoms as noted above, and increasing troponin from 17.4-22.2 in the ED. She does also report upon questioning, but she has more recently noted occasional palpitations, where it feels like her heart is skipped a beat. Allergies Allergy/AdvReac Type Severity Reaction Status Date / Time No Known Drug Allergies Allergy Unknown Verified 10/23/23 02:52 Home Medications Medication Instructions Recorded Confirmed Type calcium carbonate (Calcium 600) 600 mg PO BID #60 tabs 07/31/18 10/23/23 Rx folic acid 800 mcg tablet See Rx Instructions PO DAILY #30 07/31/18 10/23/23 Rx tabs aspirin 81 mg tablet,delayed 81 mg PO QAM 12/07/18 10/23/23 History release magnesium oxide 400 mg PO QAM 12/07/18 10/23/23 History nitroglycerin 0.4 mg sublingual 0.4 mg sublingual Q5M PRN chest 04/26/22 10/23/23 Rx tablet pain #25 tabs cholecalciferol (vitamin D3) 25 1,000 units PO HS 06/24/22 10/23/23 History mcg (1,000 unit) tablet lisinopril 30 mg tablet 15 mg (1/2 x 30 mg) PO QAM #45 tabs 01/27/23 10/23/23 Rx isosorbide mononitrate 30 mg 30 mg PO DAILY #90 tabs 07/18/23 10/23/23 Rx tablet,extended release 24 hr atorvastatin 80 mg tablet 80 mg PO QPM #90 tabs 07/21/23 10/23/23 Rx carvedilol 12.5 mg tablet 12.5 mg PO BID #180 tabs 07/21/23 10/23/23 Rx umeclidinium 62.5 mcg/actuation 1 inh inhalation Q OTHER DAY 10/23/23 10/23/23 History blister powder for inhalation (Incruse Ellipta) Past Med/Surg History Problem List (Updated 10/23/23 @ 06:40 by Jared Romero MD) Acute coronary syndrome with high troponin Chest pain (Acute) History of colon polyps Angina pectoris Atherosclerosis Bochdalek hernia Multiple pulmonary nodules Arm bruise Lymphadenopathy of right cervical region Fall Traumatic injury of rib Otalgia, right ear Neck pain Right-sided tinnitus Mixed conductive and sensorineural hearing loss of right ear with restricted hearing of left ear Chronic rhinitis Maxillary sinusitis Impacted cerumen, right ear Seborrheic keratoses, inflamed Diarrhea S/P right coronary artery (RCA) stent placement Sensation of chest tightness Mild carotid artery disease Hx of CABG 4 VESSELS 2013 WHILE LIVING IN [facility] Mitral regurgitation COPD with emphysema Lung nodules BEING MONITORED Vitamin D deficiency Former smoker quit in 2003. 40 pack year Hx. Ischemic cardiomyopathy Rheumatoid arthritis Hypertension Hyperlipidemia CAD (coronary artery disease) (Chronic) Medical History Avulsion of nail of left index finger Carotid bruit Ridged nails UTI (urinary tract infection) Emphysema of lung Myocardial Infarction 2013 History of COVID-19 11/2021>RESOLVED COVID-19 Surgical History History of colonoscopy History of tooth extraction History of tonsillectomy History of heart artery stent X 2>2013 WHILE IN [facility] History of femoral hernia repair Family History Mother Breast cancer Father Coronary heart disease Myocardial infarction Heart disease Sister Rheumatoid arthritis Other No family history of adverse response to anesthesia No family history of bleeding disorder Denies family history of Ovarian cancer Prostate cancer Colorectal cancer Social History Smoking Status: Former smoker Age Started Using Tobacco: 18; Age Quit Using Tobacco: 57; packs per day: 1; Cigarettes Per Day: 20; Second Hand Exposure: No; Do You Dip or Chew Tobacco: No; Hx Alcohol Use: Yes Alcohol type: hard liquor Alcohol Intake Frequency: Monthly or Less Hx Substance Use: No Preferred Language: Maltese Communication Ability: Effective Visual Impairment: No Limitations Hearing Ability: Hard of Hearing [facility] Required: No Beliefs That Will Affect Care: None marital status: Current Living Situation: Spouse current occupational status: retired How many Children do You have: 1 How many Children do You have Comment: son Feels Safe at Home: Yes Childhood Exposure to Second-Hand Smoke: No Diet: low salt and regular caffeine: Yes during the past year weight has: remained stable Dental Care, Regularly: Yes Physical Activity Frequency: Daily Physical Activity Frequency Comment: walking, gardening Seatbelt Use: always Sunscreen Use: No Do you think of yourself as: straight/heterosexual Gender Identity: Female Assistive Devices: Denture - Upper and Glasses Review of Systems Review of Systems: The patient denies shortness of breath, dyspnea on exertion, cough, lower extremity swelling, sore throat, fevers, chills, sweats, weight change, fatigue, nausea, vomiting, diarrhea , constipation, abdominal pain, pelvic pain, blood in urine or stool, dysuria, urinary frequency or urgency, lightheadedness, dizziness, headache, memory loss, loss of consciousness, rash, abnormal bruising or bleeding, imbalance, focal or generalized weakness, numbness or tingling in arms or legs, generalized arthralgias or myalgias, back or neck pain, or night sweats. The review of systems is otherwise negative other than for that already noted above, and at least 10 systems have been reviewed. Physical Exam Physical Exam: The patient is awake, alert and oriented 3, well developed and well nourished, normocephalic and atraumatic, lying in bed and in no acute distress. HEENT--PERRL, EOMI, mucous membranes and oropharynx normal. Neck--supple. No JVD. No bruits. Thyroid normal, trachea midline, no adenopathy. Heart--normal S1 and S2. Occasional premature contraction. No murmurs, rubs or gallops. Lungs--clear bilaterally, no respiratory distress, no accessory muscle use. Abdomen--normal bowel sounds and soft. Nontender. Nondistended, no hernias or masses, no organomegaly. Extremities--no cyanosis or clubbing. No edema. Dermatologic--normal skin turgor, normal color, no abnormal lymph nodes, no rash. Neurologic--cranial nerves II through XII grossly intact. Rheumatologic--normal range of motion. Psychiatric--normal affect. Results & Data Results & Data Vital Signs (Past 12 Hours) Vital Signs Temp Pulse Resp BP Pulse Ox O2 Del Method 10/23/23 06:11 57 L 10/23/23 05:30 50 L 16 160/69 H 94 10/23/23 05:00 50 L 16 139/66 94 10/23/23 04:30 51 L 18 140/68 94 Room Air 10/23/23 03:30 50 L 22 140/63 95 10/23/23 03:00 51 L 12 148/73 H 95 10/23/23 02:19 49 L 10/23/23 02:19 36.6 C 64 16 167/76 H 96 Room Air Laboratory Results Laboratory Results WBC 6.13 K/ul (4.8-10.8) 10/23/23 02:16 RBC 3.78 M/uL (4.20-5.40) L 10/23/23 02:16 Hgb 11.1 g/dl (12.0-16.0) L 10/23/23 02:16 Hct 33.7 % (37.0-47.0) L 10/23/23 02:16 MCV 89.2 fL (80.0-100.0) 10/23/23 02:16 MCH 29.4 pg (25.0-34.0) 10/23/23 02:16 MCHC 32.9 g/dL (32.0-36.0) 10/23/23 02:16 RDW Std Deviation 51.3 fL (36.4-46.3) H 10/23/23 02:16 RDW Coeff of Jimena 15.6 % (11.5-14.5) H 10/23/23 02:16 Plt Count 134 K/uL (130-400) 10/23/23 02:16 MPV 10.7 fL (9.4-12.4) 10/23/23 02:16 Immature Gran % (Auto) 0.3 % 10/23/23 02:16 Neut % (Auto) 69.7 % 10/23/23 02:16 Lymph % (Auto) 17.8 % 10/23/23 02:16 Stanton % (Auto) 7.8 % 10/23/23 02:16 Eos % (Auto) 3.9 % 10/23/23 02:16 Baso % (Auto) 0.5 % 10/23/23 02:16 Neut # (Auto) 4.27 K/uL (1.40-6.50) 10/23/23 02:16 Lymph # (Auto) 1.09 K/uL (1.20-3.40) L 10/23/23 02:16 Stanton # (Auto) 0.48 K/uL (0.11-0.59) 10/23/23 02:16 Eos # (Auto) 0.24 K/uL (0.00-0.50) 10/23/23 02:16 Baso # (Auto) 0.03 K/uL (0.00-0.20) 10/23/23 02:16 Immature Gran # (Auto) 0.02 K/uL (0.01-0.20) 10/23/23 02:16 PT 10.3 Seconds (9.0-12.0) 10/23/23 02:16 INR 0.9 (0.9-1.1) 10/23/23 02:16 Sodium 141 mmol/L (136-145) 10/23/23 02:16 Potassium 4.3 mmol/L (3.5-5.1) 10/23/23 02:16 Chloride 108 mmol/L (98-107) H 10/23/23 02:16 Carbon Dioxide 27 mmol/L (21-32) 10/23/23 02:16 Anion Gap 6 (3-11) 10/23/23 02:16 BUN 33 mg/dl (6-23) H 10/23/23 02:16 Creatinine 1.03 mg/dl (0.6-1.2) 10/23/23 02:16 Est Cr Clr Drug Dosing 36.2 ml/min 10/23/23 02:16 Est GFR ( Amer) 60.7 ml/min 10/23/23 02:16 Est GFR (Non-Af Amer) 52.4 ml/min 10/23/23 02:16 BUN/Creatinine Ratio 32.0 (10-20) H 10/23/23 02:16 Glucose 98 mg/dl (70-99(Fasting)) 10/23/23 02:16 Calcium 9.7 mg/dl (8.6-10.3) 10/23/23 02:16 Magnesium 2.2 mg/dl (1.7-2.4) 10/23/23 02:16 Total Bilirubin 0.4 mg/dl (0.2-1.0) 10/23/23 02:16 AST 22 U/L (13-39) 10/23/23 02:16 ALT 15 U/L (7-52) 10/23/23 02:16 Alkaline Phosphatase 68 U/L (34-104) 10/23/23 02:16 Troponin I High Sens 22.2 pg/ml (0-14) H 10/23/23 04:50 Total Protein 6.2 gm/dl (6.0-8.3) 10/23/23 02:16 Albumin 3.9 gm/dl (3.4-5.0) 10/23/23 02:16 Globulin 2.3 gm/dl (2.5-4.0) L 10/23/23 02:16 Albumin/Globulin Ratio 1.7 (0.9-2) 10/23/23 02:16 Lipase 35 U/L (11-82) 10/23/23 02:16 TSH 2.849 uIu/ml (0.300-4.500) 10/23/23 02:16 Code Status & VTE Plan Code Status Full code VTE Prophylaxis Plan VTE Prophylaxis will be ordered: Yes PG Care Time/CCT Total # of Minutes Spent Total Time Spent with Patient: Total time spent is greater than 50% in coordination of care (as documented) at patient's floor/unit and/or counseling patient: Coding Level of Care Code 14497 INT INP/OBS CARE 3/75MIN Diagnoses Acute coronary syndrome with high troponin I24.9 S/P right coronary artery (RCA) stent placement Z95.5 Hx of CABG Z95.1 Ischemic cardiomyopathy I25.5 Rheumatoid arthritis M06.9 Hypertension, unspecified type I10 Hypertension type: unspecified Hyperlipidemia, unspecified hyperlipidemia type E78.5 Hyperlipidemia type: unspecified COPD with emphysema J43.9 (6) Hypertension Hypertension type: unspecified Qualified Code(s): I10 - Essential (primary) hypertension (7) Hyperlipidemia Hyperlipidemia type: unspecified Qualified Code(s): E78.5 - Hyperlipidemia, unspecified
[2023-10-23] MEDS: HEPARIN SOD (PORCINE) 1000 UNIT/ML IV ONE (06:29)
[2023-10-23] MEDS: HEPARIN SODIUM/DEXTROSE 25,000 UNITS/500 ML BAG IV SCH (06:30)
[2023-10-23] MEDS: Heparin IV Adult Wt-Based Standard w/ INITIAL Bolus Protocol IV STA (06:31)
[2023-10-23] MEDS: SODIUM CHLORIDE 0.9% 1,000 ML IV STA (06:36)
[2023-10-23] MEDS: NITROGLYCERIN 2% OINTMENT 30GM TUBE EXT STA (06:43)
[2023-10-23 06:47] LABS: Partial Thromboplastin Time 27 Seconds (21-31)
[2023-10-23 07:25] LABS: Chol HDL Ratio 2.5 (0-5)
[2023-10-23 07:34] LABS: Estimated Average Glucose 120 mg/dl; Hemoglobin A1C 5.8 % (4.5-5.6)
[2023-10-23] MEDS ORDERED: NITROGLYCERIN SL 0.4 MG/TAB TAB SL PRN (07:34)
[2023-10-23] MEDS ORDERED: ONDANSETRON INJ 2 MG/ML 2 ML VIAL IV PRN (07:34)
[2023-10-23] MEDS ORDERED: ACETAMINOPHEN 325 MG TAB PO PRN (07:34)
--- NOTE | 2023-10-23 07:41 | Hospitalist Progress Note ---
"Date of Service October 23, 2023 Assessment & Plan (1) Acute coronary syndrome with high troponin: (2) S/P right coronary artery (RCA) stent placement: (3) Hx of CABG: (4) Ischemic cardiomyopathy: (5) Rheumatoid arthritis: (6) Hypertension: (7) Hyperlipidemia: (8) COPD with emphysema: Plan Camila is a 78F w/ PMH of CAD s/p RCA stent & CABG, angina pectoris, MR, HTN, HLD, COPD w/ emphysema a/w smoking hx, atherosclerosis, pulmonary nodules, SNHL, and rheumatoid arthritis who presented for evaluation of chest pain. Angina Hx of HTN | HLD | CAD s/p RCA stent and CABG | Ischemic Cardiomyopathy - Troponin peaked at 22.2 at 0450 10/22, no CP since 10/22 - EKG with sinus bradycardia and repolarization changes anterior chest leads - S/p 324 mg Aspirin in EMS & Nitropaste 1 inch to anterior chest wall every 6 hours - Ongoing heparin drip with bolus per protocol - Lipid profile and A1c pending stable - Consult cardiology, appreciate Dr. Solis recommendations Patient declines angiography, planning myocardial perfusion study CAD/HTN/HLD: Aspirin 81 mg daily. Continue beta-pollo and high intensity statin therapy. Increase Lisinopril to 20mg and increase isosorbide mononitrate to 60 mg daily - Echocardiogram pending - Continue NSS at 80 mL/h x 1 L - Continue nitroglycerin sublingual q5m PRN COPD with Emphysema - Continue Incruse Ellipta Plan FENGI - NPO CODE - Full Dispo - Telemetry, pending nuclear medicine study Consults - Cardiology Admission and Anticipated Discharge Date Admission Date: October 23, 2023 Subjective Patient resting comfortably in ED bed upon arrival. She notes that she presented last evening due to two episodes of chest pain (resolved by Nitroglycerin) during her sleep. Patient notes that her chest pain is often while she is sleeping, but that this is the first time she has ever had two episodes in one night, so she presented to the ED. Patient describes the pain as tightness across the top of her chest. She denies sharp stabbing pain or central chest pressure. There is no pain radiating into her jaw or arms. She has not had chest pain since her last episode at home around 12:30 AM. While she notes that she has had to adjust her antihypertensive regimen due to hypotension at home, she has not had to change any medications in the last month. Camila continues to walk around 1 mile daily, garden, and spend time cleaning her home without provocation of chest pain. She denies any recent URI symptoms, nausea, vomiting, or diarrhea. She has had no acute dietary changes. Patient follows with [facility] Cardiology (Dr. Orellana) as an outpatient. Patient is not experiencing any chest pain at present and has no acute concerns. No additional events overnight. Physical Exam Physical Exam: Gen: NAD, alert, interactive HEENT: Supple, no LAD, no thyromegaly, no JVD Resp:Non-labored, no wheezing/rhonchi/rales, CTAB CV:RRR, normal S1/S2, PVCs, systolic murmur at RUSB Abd: Soft, non-distended, no TTP, normoactive bowels, no masses Extr: 2+ dp bilaterally, no edema Skin: No rashes lesions or erythema Results & Data Results & Data Vital Signs (Past 12 Hours) Vital Signs Temp Pulse Resp BP Pulse Ox O2 Del Method 10/23/23 06:39 52 L 16 150/68 H 95 10/23/23 06:11 57 L 10/23/23 05:30 50 L 16 160/69 H 94 10/23/23 05:00 50 L 16 139/66 94 10/23/23 04:30 51 L 18 140/68 94 Room Air 10/23/23 03:30 50 L 22 140/63 95 10/23/23 03:00 51 L 12 148/73 H 95 10/23/23 02:19 49 L 10/23/23 02:19 36.6 C 64 16 167/76 H 96 Room Air Resident Activity Tracking Resident Involvement: Resident Care Provided Care Provided: Adult Hospital Medicine (6) Hypertension Hypertension type: unspecified Qualified Code(s): I10 - Essential (primary) hypertension (7) Hyperlipidemia Hyperlipidemia type: unspecified Qualified Code(s): E78.5 - Hyperlipidemia, unspecified"
--- NOTE | 2023-10-23 07:55 | XRay Report ---
XR chest 1V portable HISTORY: Atypical chest pain. COMPARISON: Chest CT 12/30/2022. FINDINGS: No pneumothorax. No pleural effusions. Emphysema and mild cardiac megaly are again noted. N o new focal lung consolidations to suggest a pneumonia. No evidence for pulmonary edema. Mild diffuse interstitial thickening persists. There are poststernotomy changes. No acute fractures. IMPRESSION: No significant change compared to the prior study. No acute process. ACT 112: Negative or not required by law. Electronically signed by: Bolivar Lyn M.D. 10/23/2023 7:54 AM
[2023-10-23] MEDS: lisinopril 5 MG TAB PO SCH (08:36)
[2023-10-23] MEDS: carvediloL 12.5 MG TAB PO SCH (08:36)
[2023-10-23] MEDS: UMECLIDINIUM BROMIDE 62.5MCG/BLISTER 7 PUFFS/INHALER INH SCH (08:38)
[2023-10-23] MEDS: FOLIC ACID 400 MCG TAB PO SCH (08:38)
[2023-10-23] MEDS: MAGNESIUM OXIDE 400 MG TAB PO SCH (08:38)
[2023-10-23] MEDS: ISOSORBIDE MONO EXTENDED REL 30 MG TABCR PO SCH (08:38)
[2023-10-23] MEDS: CALCIUM CARBONATE 1250MG TAB PO SCH (08:39)
[2023-10-23 10:42] VITALS: RESP 18
--- NOTE | 2023-10-23 10:49 | Cardiology Consultation ---
Date of Consultation October 23, 2023 Assessment & Plan (1) Angina pectoris: (2) Elevated troponin: (3) CAD (coronary artery disease): (4) Hx of CABG: (5) S/P right coronary artery (RCA) stent placement: (6) Hypertension: (7) Hyperlipidemia: (8) Ischemic cardiomyopathy: Plan ASSESSMENT/PLAN: 1. Angina: Has chronic stable angina. Had been using intermittent nitroglycerin patch but that was discontinued a few months ago in favor of low- dose isosorbide mononitrate. Interestingly, continues to exercise throughout the day without symptoms and symptoms typically occur in bed. Discussed and recommended ischemic evaluation. She does not wish to undergo invasive measures such as coronary angiography. She wished to be discharged and have some form of outpatient follow-up. After discussion, she was agreeable to stay for myocardial perfusion study, hopefully today. Increase isosorbide mononitrate to 60 mg daily. Improve blood pressure. 2. CAD s/p CABG x 4 and RCA PCI: Complex CAD noted on last cardiac catheterization in 2012 with 2 of her bypass grafts occluded and the other 2 with significant downstream hoopa vessel CAD at which point she underwent RCA PCI. She does not wish to undergo coronary angiography. Continue aspirin 81 mg daily. Continue beta-pollo, high intensity statin therapy, IVONNE inhibitor and titrate nitrate therapy as noted above. 3. Hypertension: Blood pressure higher than usual. Titrating nitrate therapy. Increase lisinopril to 20 mg daily. She had orthostatic symptoms in the past on 30 mg. Could also consider low-dose amlodipine which may have an anginal benefit as well. 4. Ischemic cardiomyopathy: Mildly reduced LV systolic function which is chronic. She appears euvolemic. She does not qualify for ICD for primary prevention. Continue beta-pollo and IVONNE inhibitor as above. 5. Dyslipidemia: LDL is excellent. Continue high intensity statin therapy. 7. Disposition: Cardiology will continue to follow. Plan of care communicated with primary hospitalist, Dr. Harley. Will arrange close follow-up in the outpatient setting. Highly complex medical issues for which cardiac catheterization was considered and discussed as above. Thank you for allowing me to participate in the care of your patient. Please call for any other questions or concerns. Sincerely, Chino Callejas M.D. History of Present Illness Reason for Consultation: "ACS" Requesting Physician: Dr. Romero Attending Physician: Robby Harley DO History of Present Illness Mrs. Rangel is a very pleasant 78-year-old female with a history significant for multivessel CAD s/p CABG x4, RCA PCI, ischemic cardiomyopathy, hypertension, dyslipidemia, peripheral arterial disease s/p left lower extremity angioplasty, emphysema, pulmonary nodules, and Raynaud's syndrome. She has had the following studies/procedures: 1. CABG x 4 on 11/01/12 in [place]: GOODMAN to mid LAD; SVG to distal LAD; SVG to OM; SVG to PDA. 2. Left lower extremity angioplasty December 2012. 3. Cardiac catheterization 02/18/2013: Mid LAD 100% after D2. Proximal circumflex 100%. Mid RCA subtotal occlusion. GOODMAN to Mid LAD was patent with 80% stenosis at distal anastomosis. SVG to distal LAD occluded. Distal LAD fills via [id number] collaterals. SVG to OM patent but with 99% stenosis in hoopa OM just beyond anastomosis. SVG to PDA occluded at anastomotic site. PDA fills via [id number] collaterals. PL fills via SVG to PDA collaterals. Mid RCA underwent PCI with XIENCE 3 x 38 mm TARAH and XIENCE 2.75 x 38 mm TARAH. EF 35%. Medical management was recommended for mid LAD disease due to small caliber vessel and very complex Disease. 4. Nuclear stress 12/01/2014: Mid to distal anteroseptal ischemia suggested. EF 43%. Small inferior infarct verses attenuation artifact. Severely hypokinetic septum. 5. Echo 12/01/2014: Normal LV size with moderately reduced systolic function. EF 40-45%. Mild global hypokinesis with akinesis of septal base and inferior base. Mildly reduced RV systolic function. Sclerotic aortic valve. Mild MR. Type 1 diastolic dysfunction. 6. Echo 04/10/2017: Mildly to moderately reduced LV systolic function. EF 40- 45%. Akinesis of the basal inferior wall and basal septum. Otherwise, mild global hypokinesis. Type 2 diastolic dysfunction. Mild left atrial dilation. Sclerotic aortic valve. Mild to moderate MR. RVSP 26. 7. Echo 07/16/2020: Normal LV size with low-normal systolic function. EF 50- 55%. Hypokinesis of the basal inferior and basal inferoseptal wall segments. Mild LVH. Mild left atrial dilation. Sclerotic aortic valve. Mild MR. RVSP 26. 8. PFT's 12/23/2020: Moderate obstruction. She was admitted on 10/23/2023 after presenting to the emergency department with chest pressure. She has history of chest pressure treated as chronic stable an mirella. She has used nitroglycerin patch in the past but in June 2023, started on isosorbide mononitrate [address] of her nitroglycerin patch, which she only used sparingly. She typically has 3 or 4 episodes of chest pressure throughout the year but has had 7 or 8 episodes this year. She is very active and yesterday walked 1 mile as she does every day, did the laundry, clean windows, and worked in her flower beds and garden. She had no chest discomfort with any of these activities but was awakened from sleep at 11:30 PM with central chest pressure without diaphoresis, shortness of breath, or radiation of the pain. It resolved within approximately 1 minute of nitroglycerin. It returned at approximately 12:30 AM, once again resolving quickly with nitroglycerin. She has not had any further chest discomfort since arrival here. Her troponin peaked at 22 before trending downward. She does recall 1 episode of chest discomfort approximately 1 week ago after "running" in and out of a gas station and then sitting in the car when the chest discomfort occurred. She denies melena, hematochezia, hematuria, shortness of breath, palpitations, syncope, or near syncope. Her blood pressure is typically well-controlled but has been elevated while here. Review of systems: As above. Family history: Father with CAD. Social history: Quit smoking greater than 10 years ago. No significant alcohol. No drugs. Lives at home with her . She has 1 son ([place]). She is unaccompanied today. Allergies Allergy/AdvReac Type Severity Reaction Status Date / Time No Known Drug Allergies Allergy Unknown Verified 10/23/23 02:52 Home Medications Medication Instructions Recorded Confirmed Type calcium carbonate (Calcium 600) 600 mg PO BID #60 tabs 07/31/18 10/23/23 Rx folic acid 800 mcg tablet See Rx Instructions PO DAILY #30 07/31/18 10/23/23 Rx tabs aspirin 81 mg tablet,delayed 81 mg PO QAM 12/07/18 10/23/23 History release magnesium oxide 400 mg PO QAM 12/07/18 10/23/23 History nitroglycerin 0.4 mg sublingual 0.4 mg sublingual Q5M PRN chest 04/26/22 10/23/23 Rx tablet pain #25 tabs cholecalciferol (vitamin D3) 25 1,000 units PO HS 06/24/22 10/23/23 History mcg (1,000 unit) tablet lisinopril 30 mg tablet 15 mg (1/2 x 30 mg) PO QAM #45 tabs 01/27/23 10/23/23 Rx isosorbide mononitrate 30 mg 30 mg PO DAILY #90 tabs 07/18/23 10/23/23 Rx tablet,extended release 24 hr atorvastatin 80 mg tablet 80 mg PO QPM #90 tabs 07/21/23 10/23/23 Rx carvedilol 12.5 mg tablet 12.5 mg PO BID #180 tabs 07/21/23 10/23/23 Rx umeclidinium 62.5 mcg/actuation 1 inh inhalation Q OTHER DAY 10/23/23 10/23/23 History blister powder for inhalation (Incruse Ellipta) Problem List (Updated 10/23/23 @ 07:38 by Mita Montano DO) Elevated troponin (Acute) Acute coronary syndrome with high troponin Chest pain (Acute) History of colon polyps Angina pectoris Atherosclerosis [place] hernia Multiple pulmonary nodules Arm bruise Lymphadenopathy of right cervical region Fall Traumatic injury of rib Otalgia, right ear Neck pain Right-sided tinnitus Mixed conductive and sensorineural hearing loss of right ear with restricted hearing of left ear Chronic rhinitis Maxillary sinusitis Impacted cerumen, right ear Seborrheic keratoses, inflamed Diarrhea S/P right coronary artery (RCA) stent placement Sensation of chest tightness Mild carotid artery disease Hx of CABG 4 VESSELS 2012 WHILE LIVING IN [facility] Mitral regurgitation COPD with emphysema Lung nodules BEING MONITORED Vitamin D deficiency Former smoker quit in 2003. 40 pack year Hx. Ischemic cardiomyopathy Rheumatoid arthritis Hypertension Hyperlipidemia CAD (coronary artery disease) (Chronic) Patient History Medical History Avulsion of nail of left index finger Carotid bruit Ridged nails UTI (urinary tract infection) Emphysema of lung Myocardial Infarction 2012 History of COVID-19 11/2021>RESOLVED COVID-19 Surgical History History of colonoscopy History of tooth extraction History of tonsillectomy History of heart artery stent X 2>2013 WHILE IN [place] History of femoral hernia repair Family History Mother Breast cancer Father Coronary heart disease Myocardial infarction Heart disease Sister Rheumatoid arthritis Other No family history of adverse response to anesthesia No family history of bleeding disorder Denies family history of Ovarian cancer Prostate cancer Colorectal cancer Social History Smoking Status: Former smoker Tobacco Type: Cigarettes Age Started Using Tobacco: 18; Age Quit Using Tobacco: 57; packs per day: 1; Cigarettes Per Day: 20; Second Hand Exposure: No; Do You Dip or Chew Tobacco: No; Hx Alcohol Use: Yes Alcohol type: hard liquor Alcohol Intake Frequency: Monthly or Less Hx Substance Use: No Preferred Language: Polish Communication Ability: Effective Visual Impairment: No Limitations Hearing Ability: Hard of Hearing Health Professional Required: No Beliefs That Will Affect Care: None marital status: Current Living Situation: Spouse current occupational status: retired How many Children do You have: 1 How many Children do You have Comment: son Other Information That Helps Us Care for You: No Feels Safe at Home: Yes Safety Concerns: Feels Safe At This Time Childhood Exposure to Second-Hand Smoke: No Diet: low salt and regular caffeine: Yes during the past year weight has: remained stable Dental Care, Regularly: Yes Physical Activity Frequency: Daily Physical Activity Frequency Comment: walking, gardening Seatbelt Use: always Sunscreen Use: No Do you think of yourself as: straight/heterosexual Gender Identity: Female Assistive Devices: Denture - Upper and Glasses Physical Exam Physical Exam: Gen.: No acute distress. Alert and oriented. HEENT: Anicteric sclera. Neck: No JVD. Bilateral carotid bruits versus radiation of cardiac murmur. Normal carotid upstrokes. Cardiac: No ventricular heave. Regular without ectopy. Normal S1-S2. 2/6 early peaking systolic ejection murmur. No rubs or gallops. Pulmonary: Clear to auscultation bilaterally without wheezes, rales, or rhonchi. Abdomen: Soft, nontender, nondistended, with normoactive bowel sounds. No bruits noted. Extremities: 2+ radial pulses bilaterally. 1+ posterior tibialis pulses annita aterally. No edema. No cyanosis. Psychiatric: Affect appears appropriate. Chest: Nontender to palpation. Results & Data Vital Signs (Past 12 Hours) Vital Signs Temp Pulse Pulse Resp BP BP Pulse Ox 10/23/23 10:37 36.8 C 51 L 18 167/75 H 98 10/23/23 09:08 10/23/23 09:08 56 L 22 167/75 H 97 10/23/23 06:39 52 L 16 150/68 H 95 10/23/23 06:11 57 L 10/23/23 05:30 50 L 16 160/69 H 94 10/23/23 05:00 50 L 16 139/66 94 10/23/23 04:30 51 L 18 140/68 94 10/23/23 03:30 50 L 22 140/63 95 10/23/23 03:00 51 L 12 148/73 H 95 10/23/23 02:19 49 L 10/23/23 02:19 36.6 C 64 16 167/76 H 96 Pulse Ox O2 Del Method O2 Del Method 10/23/23 10:37 Room Air 10/23/23 09:08 96 Room Air 10/23/23 09:08 Room Air 10/23/23 06:39 10/23/23 06:11 10/23/23 05:30 10/23/23 05:00 10/23/23 04:30 Room Air 10/23/23 03:30 10/23/23 03:00 10/23/23 02:19 10/23/23 02:19 Room Air Laboratory Results Laboratory Results - last 24 hr 10/23/23 10/23/23 10/23/23 02:16 04:50 08:20 WBC 6.13 RBC 3.78 L Hgb 11.1 L Hct 33.7 L MCV 89.2 MCH 29.4 MCHC 32.9 RDW Std Deviation 51.3 H RDW Coeff of [place] 15.6 H Plt Count 134 MPV 10.7 Immature Gran % (Auto) 0.3 Neut % (Auto) 69.7 Lymph % (Auto) 17.8 [place] % (Auto) 7.8 Eos % (Auto) 3.9 Baso % (Auto) 0.5 Neut # (Auto) 4.27 Lymph # (Auto) 1.09 L [place] # (Auto) 0.48 Eos # (Auto) 0.24 Baso # (Auto) 0.03 Immature Gran # (Auto) 0.02 PT 10.3 INR 0.9 APTT 27 PTT Ratio 1.0 Sodium 141 Potassium 4.3 Chloride 108 H Carbon Dioxide 27 Anion Gap 6 BUN 33 H Creatinine 1.03 Est Cr Clr Drug Dosing 36.2 Est GFR ( Amer) 60.7 Est GFR (Non-Af Amer) 52.4 BUN/Creatinine Ratio 32.0 H Glucose 98 Estimat Average Glucose 120 Hemoglobin A1c 5.8 H Calcium 9.7 Magnesium 2.2 Total Bilirubin 0.4 AST 22 ALT 15 Alkaline Phosphatase 68 Troponin I High Sens 17.4 H 22.2 H 16.4 H D Total Protein 6.2 Albumin 3.9 Globulin 2.3 L Albumin/Globulin Ratio 1.7 Triglycerides 59 Cholesterol 113 LDL Cholesterol, Calc 55 VLDL Cholesterol, Calc 12 HDL Cholesterol 46 Cholesterol/HDL Ratio 2.5 Lipase 35 TSH 2.849 Diagnostic Findings Labs reviewed and notable for normal blood counts, stable renal function, slightly elevated high-sensitivity troponin, peaking at 22, excellent LDL, normal TSH. Telemetry personally reviewed: No arrhythmia. Sinus bradycardia. History and physical report reviewed. Echo images personally reviewed from 10/23/2023: Preliminary review demonstrated mildly reduced LV systolic function with RCA wall motion abnormalities (previously noted). Nonsevere valvular insufficiency. Formal review to follow. ECG personally reviewed 10/23/2023 2:16 AM: Sinus bradycardia first-degree AV block 59 bpm. Possible septal infarct. Inferolateral T wave abnormality. ECG 10/23/2023 6:27 AM personally reviewed: Sinus bradycardia first-degree AV block 52 bpm. Inferolateral T wave abnormality. Chest x-ray 10/23/2023: No acute process. Mild diffuse interstitial thickening. Emphysema. per radiology. Medications Administered Current Inpatient Medications Acetaminophen (Acetaminophen 325 Mg Tab) 650 mg PO Q4H PRN PRN Reason: Pain or Fever Stop: 11/22/23 07:33 Aspirin (Aspirin 81 Mg Ectab) [facility] [place] [place] Stop: 11/23/23 08:59 Atorvastatin Calcium (Atorvastatin 40 Mg Tab) 80 mg PO QPM [facility] Stop: 11/22/23 20:59 Calcium Carbonate (Calcium Carbonate 1250mg Tab) 1 tab PO BID [facility]; Protocol Stop: 11/22/23 08:59 Last Admin: 10/23/23 08:39 Dose: Not Given Carvedilol (Carvedilol 12.5 Mg Tab) 12.5 mg PO BIDM [facility] Stop: 11/22/23 07:59 Last Admin: 10/23/23 08:36 Dose: 12.5 mg Folic Acid (Folic Acid 400 Mcg Tab) 800 mcg PO DAILY [facility] Stop: 11/22/23 08:59 Last Admin: 10/23/23 08:38 Dose: 800 mcg Heparin Sodium/Dextrose (Heparin Sodium/Dextrose) 25,000 units in 500 mls @ 19 mls/hr IV .Q24H [facility]; Protocol Stop: 11/22/23 06:29 Last Admin: 10/23/23 06:30 Dose: 950 units/hr, 19 mls/hr Sodium Chloride (Nss) 1,000 mls @ 80 mls/hr IV .[id number] [facility] Stop: 10/23/23 18:50 Last Admin: 10/23/23 06:36 Dose: 80 mls/hr Isosorbide Mononitrate (Isosorbide [place] Extended Rel 60 Mg Tabcr) 60 mg PO DAILY [facility] Stop: 11/23/23 08:59 Magnesium Oxide (Magnesium Oxide 400 Mg Tab) 400 mg PO QAM [facility] Stop: 11/22/23 08:59 Last Admin: 10/23/23 08:38 Dose: 400 mg Nitroglycerin (Nitroglycerin Sl 0.4 Mg/Tab Tab) 0.4 mg SL Q5M PRN PRN Reason: chest pain Stop: 11/22/23 07:33 Ondansetron HCl (Ondansetron Inj 2 Mg/Ml 2 Ml Vial) 4 mg IV Q6H PRN PRN Reason: Nausea Stop: 11/22/23 07:33 Umeclidinium [place] (Umeclidinium [place] 62.5mcg/Blister 7 Puffs/Inhaler) 1 puffs INH Q2D [facility] Stop: 11/22/23 08:59 Last Admin: 10/23/23 08:38 Dose: Not Given Vitamin D (Cholecalciferol 25 Mcg (1000 Units) Tab) 25 mcg PO HS [facility] Stop: 11/22/23 20:59 PG Care Time/CCT Total # of Minutes Spent Total Time Spent with Patient: Total time spent is greater than 50% in coordination of care (as documented) at patient's floor/unit and/or counseling patient: Coding Level of Care Code 56205 INT INP/OBS CARE 3/75MIN Diagnoses Angina pectoris I20.9 Elevated troponin R79.89 Coronary artery disease involving hoopa coronary artery of hoopa heart without angina pectoris I25.10 Coronary Disease-Associated Artery/Lesion type: hoopa artery [place] vs. transplanted heart: hoopa heart Associated angina: without angina Hx of CABG Z95.1 S/P right coronary artery (RCA) stent placement Z95.5 Hypertension, unspecified type I10 Hypertension type: unspecified Hyperlipidemia, unspecified hyperlipidemia type E78.5 Hyperlipidemia type: unspecified Ischemic cardiomyopathy I25.5 (3) CAD (coronary artery disease) Coronary Disease-Associated Artery/Lesion type: hoopa artery [place] vs. transplanted heart: hoopa heart Associated angina: without angina Qualified Code(s): I25.10 - Atherosclerotic heart disease of hoopa coronary artery without angina pectoris (6) Hypertension Hypertension type: unspecified Qualified Code(s): I10 - Essential (primary) hypertension (7) Hyperlipidemia Hyperlipidemia type: unspecified Qualified Code(s): E78.5 - Hyperlipidemia, unspecified
[2023-10-23] MEDS: lisinopril 5 MG TAB PO ONE (10:52)
[2023-10-23] MEDS ORDERED: NITROGLYCERIN 2% OINTMENT 30GM TUBE EXT SCH (12:00)
[2023-10-23 15:13] VITALS: BP 162/75; PULSE 58; TEMP 98.1; O2SAT 99
[2023-10-23] MEDS: REGADENOSON 0.4 MG/5 ML SYR IV ONE (15:20)
[2023-10-23 16:03] LABS: ANTI-Xa, UFH(UnfractionatedHep 1.38 IU/ml (0.3-0.7)
--- NOTE | 2023-10-23 17:36 | Discharge Summary ---
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 She presents to the emergency department with escalating symptoms as noted above, and increasing troponin from 17.4-22.2 in the ED. She does also report upon questioning, but she has more recently noted occasional palpitations, where it feels like her heart is skipped a beat. Admission Exam Per Admitting Provider The patient is awake, alert and oriented 3, well developed and well nourished, normocephalic and atraumatic, lying in bed and in no acute distress. HEENT--PERRL, EOMI, mucous membranes and oropharynx normal. Neck--supple. No JVD. No bruits. Thyroid normal, trachea midline, no adenopathy. Heart--normal S1 and S2. Occasional premature contraction. No murmurs, rubs or gallops. Lungs--clear bilaterally, no respiratory distress, no accessory muscle use. Abdomen--normal bowel sounds and soft. Nontender. Nondistended, no hernias or masses, no organomegaly. Extremities--no cyanosis or clubbing. No edema. Dermatologic--normal skin turgor, normal color, no abnormal lymph nodes, no rash. Neurologic--cranial nerves II through XII grossly intact. Rheumatologic--normal range of motion. Psychiatric--normal affect. Principal Diagnosis LAD Ischemia Discharge Exam Gen: NAD, alert, interactive HEENT: Supple, no LAD, no thyromegaly, no JVD Resp:Non-labored, no wheezing/rhonchi/rales, CTAB CV:RRR, normal S1/S2, PVCs, systolic murmur at RUSB Abd: Soft, non-distended, no TTP, normoactive bowels, no masses Extr: 2+ dp bilaterally, no edema Skin: No rashes lesions or erythema Discharge Data Allergies Allergy/AdvReac Type Severity Reaction Status Date / Time No Known Drug Allergies Allergy Unknown Verified 10/23/23 02:52 Consultations 10/23/23 06:29 ED Decision to Admit Stat 10/23/23 07:34 Consult Cardiology Routine Hospital Course (1) Acute coronary syndrome with high troponin: (2) S/P right coronary artery (RCA) stent placement: (3) Hx of CABG: (4) Ischemic cardiomyopathy: (5) Rheumatoid arthritis: (6) Hypertension: (7) Hyperlipidemia: (8) COPD with emphysema: Plan Camila is a 78F w/ PMH of CAD s/p RCA stent & CABG, angina pectoris, MR, HTN, HLD, COPD w/ emphysema a/w smoking hx, atherosclerosis, pulmonary nodules, SNHL, and rheumatoid arthritis who presented for evaluation of chest pain. Angina Hx of HTN | HLD | CAD s/p RCA stent and CABG | Ischemic Cardiomyopathy - Troponin peaked at 22.2 at 0450 10/22, no CP since 00310/22 - EKG with sinus bradycardia and repolarization changes anterior chest leads - S/p 324 mg Aspirin in EMS & Nitropaste 1 inch to anterior chest wall every 6 hours - Ongoing heparin drip with bolus per protocol - Lipid profile and A1c pending stable - Consult cardiology, appreciate Dr. Solis recommendations Patient declines angiography, planning myocardial perfusion study CAD/HTN/HLD: Aspirin 81 mg daily. Continue beta-pollo and high intensity statin therapy. Increase Lisinopril to 20mg and increase isosorbide mononitrate to 60 mg daily - Echocardiogram pending - Continue NSS at 80 mL/h x 1 L - Continue nitroglycerin sublingual q5m PRN --- Myocardial perfusion study indicative of mid-distal LAD ischemia. Cardiac cath was recommended, patient declined and opted to discharge to home instead with medical management. Will continue Imdur at 60 mg PO daily and Lisinopril at 20 mg PO daily. Patient encouraged to follow BP at home and follow up with [employer] Helper in 1-2 weeks following discharge. COPD with Emphysema - Continue Incruse Ellipta Plan FENGI - NPO CODE - Full Dispo - DC home Consults - Cardiology Total Time Total Time Spent Total Time Spent (In Minutes): <30 Discharge Plan Discharge Items Patient Disposition: Home - Self-Care Reason For Visit: ACS Discharge Diagnosis: LAD Ischemia Activity: Per Instructions section Non-emergency contact: Primary Care Provider and [employer] Helper Call non-emergency contact if: you have any medication questions and your symptoms worsen Follow-up/Referrals: Honorio Hidalgo, [Primary Care Provider] - 10/25/23 12:00 pm Diet: Heart Healthy Addtl Attending Provider Instructions: You presented to the hospital for increased frequency of your chronic anginal chest pain. Your symptoms were resolved with home Nitroglycerin and Nitro paste in the hospital and did not recur during admission. During your admission you were evaluated for acute coronary syndrome with labs and imaging. You were also seen by Cardiology who performed a myocardial perfusion scan. This scan did indicate middle to distal occlusion (ischemia) of the left anterior descending artery. Cardiac catheterization procedure was recommended, but you elected to be discharged to home rather than proceed with intervention at this time. In leui of catheterization, some of your medications were adjusted. Upon discharge: - Imdur (Isosorbide Mononitrate) was increased to 60 mg by mouth daily - Lisinopril was increased to 20 mg by mouth daily - Continue other home medications including Aspirin 81 mg daily, Atorvastatin 80 mg daily, and Nitroglycerin PRN for chest pain Follow up with your [employer] Operator Helper in 1-2 weeks from discharge. Follow up with your PCP within 1-2 weeks of discharge. Pending Studies at Discharge: No Stand-Alone Forms: My [facility] Remote, Smoking Cessation Medications and DC Order Prescriptions: New isosorbide mononitrate 60 mg Tablet Extended Release 24 Hr 60 mg PO DAILY 30 Days Qty: 30 0RF lisinopril 20 mg tablet 20 mg PO DAILY 30 Days Qty: 30 0RF Continued atorvastatin 80 mg tablet 80 mg PO QPM Qty: 90 3RF carvedilol 12.5 mg tablet 12.5 mg PO BID Qty: 180 3RF calcium carbonate [Calcium 600] 600 mg calcium (1,500 mg) tablet 600 mg PO BID Qty: 60 0RF folic acid 800 mcg tablet See Rx Instructions PO DAILY Qty: 30 0RF Dose Instruction: 800mcg PO DAILY; Patient Comments: TAKES HS Rx Instructions: 800mcg PO DAILY; aspirin 81 mg tablet,delayed release (DR/EC) 81 mg PO QAM magnesium oxide 400 mg magnesium capsule 400 mg PO QAM nitroglycerin 0.4 mg tablet, sublingual 0.4 mg SL Q5M PRN (Reason: chest pain) Qty: 25 3RF cholecalciferol (vitamin D3) 1,000 unit tablet 1,000 units PO HS Incruse Ellipta 62.5 mcg/actuation blister with device 1 inh inhalation Q OTHER DAY Discontinued lisinopril 30 mg tablet 15 mg PO QAM Qty: 45 3RF isosorbide mononitrate 30 mg tablet extended release 24 hr 30 mg PO DAILY Qty: 90 3RF Rx Instructions: Take 1/2 tablet by mouth every day x 4 days, then increase to 1 tablet by mouth every day. Discharge Orders: Discharge Order (Routine); Ordered 10/23/23 Ordered By: Nathaniel Amador Admission Data Admit Date/Time: 10/23/23 06:20 Attending Provider: Robby Harley Admit Provider: Jared Romero Primary Care Provider: Honorio Hidalgo Other Providers: Jared Romero; Tram Pool Supervising Physician Co-Signing Physician Notes I personally examined the patient and verified all wolf points of history and exam, discussed case, and agree with decision making with Dr Amador Feeling okay. No further angina. Discussed with cardiologyinput appreciated. Would like to go home. Vitals noted, in general she is awake and alert pleasant no distress. HEENT normocephalic atraumatic mucous membranes moist. Breathing unlabored no accessory muscle use good effort. Skin without rashes pallor or icterus. Neuro without focal deficits. Anginacurrently does not want intervention. Safe/stable for home, ongoing med management and close/ongoing outpatient follow-up. Otherwise as above. Resident Activity Tracking Resident Involvement: Resident Care Provided Care Provided: Adult Hospital Medicine"
--- NOTE | 2023-10-23 19:40 | XCELERA ---
[id number] [id number]
[2023-10-23] MEDS ORDERED: CHOLECALCIFEROL 25 MCG (1000 UNITS) TAB PO SCH (21:00)
[2023-10-23] MEDS ORDERED: ATORVASTATIN 40 MG TAB PO SCH (21:00)
--- NOTE | 2023-10-23 23:05 | Myocardial Perfusion Study ---
Date of Service October 23, 2023 Myocardial Perfusion Study [facility] Myocardial Perfusion Study Report Procedure: 1. Myocardial perfusion study performed in multiple views/images 2. Lexiscan pharmacologic and exercise stress ECG Indications: 1. Angina and multivessel CAD Ordering provider: Britta Procedural details: For the stress portion of the study, Lexiscan 0.4 mg was intravenously administered followed by a saline flush. This was followed by 31.3 mCi of technetium 99m Cardiolite, injected at 1:30 PM on 10/23/2023. 30 minutes following the injection, imaging of the heart was performed in multiple projections. For the rest portion of the study, 9.7 mCi technetium 99m Ca rdiolite was injected intravenously at 11:35 AM on 10/23/2023. 1 hour following the injection, imaging of the heart was performed in the same projections. Lexiscan and exercise stress ECG: Resting ECG demonstrated: Sinus bradycardia with first-degree AV block 57 bpm. PVC. Possible septal infarct. Maximum heart rate: 96 bpm Maximal, age-predicted heart rate: 67% Resting blood pressure: 142/86 mmHg Maximum blood pressure: 142/[address] changes: None Arrhythmia: None Symptoms: During exercise, bilateral knee pain and dyspnea. Following Lexiscan, dyspnea worsened. No chest pain. Exercise: Exercised for 2 minutes and 19 seconds as per Cristiano protocol. Lexiscan was injected as target heart rate was not attained. Findings: Rotating raw imaging demonstrated no significant lung uptake. There is no significant motion artifact. Heart size appeared normal. Myocardial perfusion demonstrated a small area of moderately reduced uptake involving the mid to apical anterior wall, distal anterior septum, and apex. These defects appear to be reversible on rest imaging. Ejection fraction: 46% Wall motion: Akinesis of the basal inferoseptum, otherwise mild global hypokinesis. No significant transient ischemic dilation. Impression: 1. Abnormal myocardial perfusion study, suggesting mid to distal LAD ischemia. 2. Mildly reduced LV systolic function with akinesis of the basal inferoseptum and otherwise mild global hypokinesis. 3. Lexiscan induced dyspnea. Exercise-induced bilateral knee pain and dyspnea. No chest pain. 4. Nondiagnostic Lexiscan and exercise ECG. 5. Findings discussed with patient. She does not wish to undergo coronary angiography but rather medical management. Known GOODMAN to LAD with 80% stenosis at distal anastomosis and occluded SVG to distal LAD. Distal LAD reported to fill via left to left collaterals. She wished to be discharged. Please see cardiology consultation on 10/23/2023 for medication recommendations. She was agreeable for close follow-up in the cardiology office. [facility] Myocardial perfusion code Procedure Code Procedure 1: Myocardial Perfusion Codes: 66117 Cardiovascular Stress Test, multiple Procedure 2: Myocardial Perfusion Codes: 39679 Cardiovascular Stress Test, supervision only Procedure 3: Myocardial Perfusion Codes: 32495 Cardiovascular Stress Test, interpretation and report
--- NOTE | 2023-10-24 06:08 | Electrocardiogram Report ---
Test Reason : Blood Pressure : */* mmHG Vent. Rate : 59 BPM Atrial Rate : 59 BPM P-R Int : 226 ms QRS Dur : 88 ms QT Int : 414 ms P-R-T Axes : 29 82 51 degrees QTcB Int : 409 ms Sinus bradycardia with 1st degree A-V block with Premature ventricular complexes Septal infarct When compared with ECG of 07-Dec-2021 15:32, Premature ventricular complexes are now Present ID interval has increased Septal infarct is now Present Confirmed by Kostas Callejas ([id number]) on 10/24/2023 6:08:18 AM Referred By: REFERRED SELF Confirmed By: Kostas Callejas
[2023-10-24] MEDS ORDERED: ASPIRIN 81 MG ECTAB PO SCH (09:00)
[2023-10-24] MEDS ORDERED: ISOSORBIDE MONO EXTENDED REL 60 MG TABCR PO SCH (09:00)
--- NOTE | 2023-10-25 05:29 | Electrocardiogram Report ---
Test Reason : Blood Pressure : */* mmHG Vent. Rate : 52 BPM Atrial Rate : 52 BPM P-R Int : 240 ms QRS Dur : 88 ms QT Int : 438 ms P-R-T Axes : 38 70 50 degrees QTcB Int : 407 ms Sinus bradycardia with 1st degree A-V block Nonspecific T wave abnormality When compared with ECG of 23-Oct-2023 02:16, Premature ventricular complexes are no longer Present Confirmed by Kostas Callejas ([id number]) on 10/25/2023 5:29:15 AM Referred By: REFERRED SELF Confirmed By: Kostas Callejas
== END 2023-10-23 18:50 | disposition home or self-care (01) | DRG 311 ==
LOC: SUATTDRO → ED 02:13 → SUATTDRO 06:20 → EDINP 06:20 → 2S 13:40